=== PATIENT | female | born 1980 | race African-American/Black ===

== ENCOUNTER 2021-12-21 20:51 | Emergency (ER) | payer MEDICAID ==
[~2021-12-21] VITALS: Ht 157.5 cm; Wt 145.0 kg
[2021-12-21] MEDS ORDERED: IBUPROFEN 600MG TABLET PO ONE (21:15)
[2021-12-21] MEDS ORDERED: AZITHROMYCIN 500MG/250ML 250 ML IV ONE (22:15)
[2021-12-21] MEDS ORDERED: CEFTRIAXONE 1 G PREMIX 50 ML IV ONE (22:15)
[2021-12-21 22:55] LABS: CLARITY URINE CLOUDY (CLEAR); COLOR URINE YELLOW (YELLOW); KETONES URINE NEGATIVE (NEGATIVE); LEUKOCYTE ESTERASE URINE NEGATIVE (NEGATIVE); NITRITE URINE NEGATIVE (NEGATIVE); OCCULT BLOOD URINE TRACE (NEGATIVE); PH URINE 7.5 (4.5-8.0); PROTEIN URINE NEGATIVE (NEGATIVE); SPECIFIC GRAVITY URINE 1.018 (1.005-1.030)
[2021-12-21 22:59] LABS: BASOPHILS % 0.3 % (0.0-2.0); EOSINOPHILS % 0.8 % (0.0-5.0); HEMATOCRIT. 30.9 % (36.0-48.0); HEMOGLOBIN. 9.7 g/dL (12.0-16.0); LYMPHOCYTES % 9.1 % (20.0-50.0); MEAN CORPUSCULAR HEMOGLOBIN 21.6 pg (28.0-32.0); MEAN CORPUSCULAR VOLUME 69.2 fL (81.0-99.0); MEAN PLATELET VOLUME 7.9 fl (7.4-10.4); MONOCYTES % 5.6 % (2.0-8.0); NEUTROPHILS % 84.2 % (40.0-76.0); PLATELET 320 x1000/uL (130-400); RED BLOOD CELL COUNT 4.46 mill/uL (4.2-5.4); RED CELL DISTRIBUTION WIDTH 21.6 % (11.6-14.6)
[2021-12-21 23:00] LABS: CHLORIDE 100 mEq/L (98-107)
[2021-12-21] MEDS ORDERED: KETOROLAC 30MG/ML VIAL IV ONE (23:00)
[2021-12-21 23:18] LABS: PLATELET ESTIMATE NORMAL
[2021-12-22] MEDS ORDERED: ACETAMINOPHEN 500MG TABLET PO NR
[2021-12-22] MEDS ORDERED: AZIT250T12 MT (00:18)
[2021-12-22] MEDS ORDERED: IBUP-2029 MT (00:18)
[2021-12-22] MEDS ORDERED: SODIUM CHLORIDE 0.9% 1,000 ML IV ONE (00:30)
[2021-12-22 03:04] VITALS: BP 99/80
== END 2021-12-22 03:20 | disposition home or self-care (01) ==
LOC: ER 20:51
DX: J18.9 Pneumonia, unspecified organism (principal); J45.909 Unspecified asthma, uncomplicated; E66.9 Obesity, unspecified; Z68.43 Body mass index [BMI] 50.0-59.9, adult; Z20.822 Contact with and (suspected) exposure to COVID-19; Z90.49 Acquired absence of other specified parts of digestive tract
CPT/HCPCS: 36415; 71045; 74176; 80053; 81003; 81025; 83605; 84145; 85025; 87040; 87426; 96361; 96365; 96366; 96368; 96375; 99285; C9803; J0456; J0696; J1885; J7030